=== PATIENT | male | born 1995 | race Caucasian/White ===

== ENCOUNTER 2020-03-01 16:32 | Emergency (ER) | payer BC, SELFPAY ==
--- NOTE | ~2020-03-01 | XR_ITS ---
EXAMINATION: XR chest 2V EXAM DATE: 03/01/2020 17:29 INDICATION: Intermittent shortness of breath. Chest pain. TECHNIQUE: Frontal and lateral projections of the chest obtained and reviewed. There is no prior [place] for comparison. FINDINGS: The lungs are clear. There are no pleural effusions. The cardiomediastinal silhouette is within normal limits. There is no pneumothorax suspected. The bones and soft tissues are unremarkab le. IMPRESSION: Normal chest x-ray exam. Reviewed, dictated and finalized at location A. IMPRESSION: Normal chest x-ray exam.
[2020-03-01 16:33] VITALS: BP 132/88; PULSE 115; RESP 20; TEMP 36.6; O2SAT 100
--- NOTE | 2020-03-01 18:22 | ED.GENADULT ---
HPI - General Adult General Chief complaint: Shortness of Breath/Dyspnea Stated complaint: trouble with my breathing Time Seen by Provider: 03/01/20 16:44 Source: patient and family (mother) Mode of arrival: ambulatory Limitations: no limitations History of Present Illness HPI narrative: Patient presents with chief complaint of intermittently scratchy throat and feelings of chest congestion. Patient denies fever, chills, nausea, vomiting, wheezing. Patient denies feeling short of breath at this time. Patient denies any chest pain. Patient states that his symptoms have occurred intermittently over the past 2 weeks. Patient states that he works at [employer] and is concerned that he may have been exposed to some illness. Patient denies cough. Patient not short of breath at this time. Mother is wondering if patient should be tested for COVID. Related Data Home Medications Medication Instructions Recorded Confirmed No Home Medications 03/01/20 03/01/20 Allergies Allergy/AdvReac Type Severity Reaction Status Date / Time No Known Allergies Allergy Verified 03/01/20 16:36 Review of Systems Review of Systems: Narrative: CONSTITUTIONAL: Denies fever, chills, or sweats. EYES: Denies visual changes, redness, or discharge. ENT: Reports intermittently itchy throat denies rhinorrhea, congestion, or otalgia. CARDIOVASCULAR: Denies chest pain, palpitations, or edema. RESPIRATORY: Denies cough or dyspnea. GASTROINTESTINAL: Denies abdominal pain, nausea, vomiting, or diarrhea. GENITOURINARY: Denies dysuria or hematuria. SKIN: Denies rash or itching. MUSCULOSKELETAL: Denies back pain, joint pain, or myalgia. NEUROLOGIC: Denies headache, numbness, dizziness, or weakness. PSYCHIATRIC: Denies anxiety or depression. [facility] Social History Social History Gender identity (if verbalized by the patient): Male Exam Narrative: Exam Narrative: GENERAL: Well-appearing, well-nourished, and in no acute distress. HEAD: Normocephalic, atraumatic. EYES: PERRLA and EOMI. ENT: Nares clear, no rhinorrhea or epistaxis. Mucous membranes moist. Oropharynx without tonsillar hypertrophy, erythema exudate or other lesions. Airway is patent. Patient handling his own secretions appropriately. Bilateral TMs pearly [place] nonbulging NECK: Supple. No adenopathy or masses. No carotid bruits or JVD CHEST: Clear to auscultation. No respiratory distress. No wheezes rales or rhonchi. No tachypnea. No wheezing or other adventitious lung sounds. Patient able to speak in complete sentences without distress. HEART: Regular rhythm. No murmur heard. Normal peripheral pulses. EXTREMITIES: Normal range of motion. No edema. SKIN: Warm, dry, no rash. NEURO: No focal deficits. Alert and oriented x3. PSYCH: Normal mood and affect. Course Vital Signs Vital signs: Vital Signs Temperature 97.9 F 03/01/20 16:33 Pulse Rate 115 H 03/01/20 16:33 Respiratory Rate 20 03/01/20 16:33 Blood Pressure 132/88 03/01/20 16:33 Pulse Oximetry 100 03/01/20 16:33 Temperature 97.9 F 03/01/20 16:33 Pulse Rate 80 03/01/20 18:34 Respiratory Rate 16 03/01/20 18:34 Blood Pressure 132/88 03/01/20 16:33 Pulse Oximetry 97 03/01/20 18:34 Medical Decision Making [facility] Narrative Medical decision making narrative: 1700: Patient is resting comfortably in room and is not dyspneic or having any other shortness of breath. Patient vitals are stable and his heart rate is 88 bpm.patient is resting in bed playing video games on his cell phone. Patient would like to forego COVID testing. 1800: Patient is resting comfortably and is not having any shortness of breath or trouble breathing. Patient would like work note so that he can avoid working while he is has scratchy throat. Patient has had oxygen saturation scores of 98-100% on room air. He still declines COVID testing, blood work including ABG. Patient appears appropriately stable and is smiling an
[2020-03-01 18:34] VITALS: PULSE 80; RESP 16; O2SAT 97
== END 2020-03-01 18:42 | disposition home or self-care (01) ==
PROVIDERS: Emergency Provider Emergency Medicine; PCP Pediatrics
DX: B34.9 Viral infection, unspecified (principal)
CPT/HCPCS: 71046; 87081; 87804; 87880; 99283